=== PATIENT | female | born 1995 | race Caucasian/White ===

== ENCOUNTER 2016-06-20 20:55 | Emergency (ER) | payer OTHER ==
[2016-06-20 21:03] VITALS: O2SAT 97
--- NOTE | 2016-06-20 22:17 | EDPHY ---
H & P Stated Complaint: Bilateral knee pain-14 hour flight yesterday. Time Seen by Provider: 06/20/16 21:58 HPI/ROS: HPI The patient presents with bilateral knee pain which has been present for the last 1 day. She arrived on a flight last night from [facility] to [place], it was 14 hours and she was sleeping for most of it. She said that after the flight both of her legs felt sore, mostly in the knees, they were achy in nature and moderate in severity, her pain has been intermittent. She has no prior history of similar. She is on OCPs. She has no personal or family history of DVT or PE that she is aware of. She is here from the urging of her mother. REVIEW OF SYSTEMS Constitutional: No fever, no chills. Eyes: No discharge. ENT: No sore throat. Cardiovascular: No chest pain, no palpitations. Respiratory: No cough, no shortness of breath. Gastrointestinal: No abdominal pain, no vomiting. Genitourinary: No hematuria. Musculoskeletal: No back pain. Skin: No rashes. Neurological: No headache. PMHx: History of tib-fib fracture requiring ORIF Soc Hx: College student PHYSICAL General Appearance: Alert, no distress Eyes: Pupils equal and round no pallor or injection ENT, Mouth: Mucous membranes moist Respiratory: There are no retractions, lungs are clear to auscultation Cardiovascular: Regular rate and rhythm Gastrointestinal: Abdomen is soft and non-tender, no masses, bowel sounds normal Neurological: A&O, moves all extremities Skin: Warm and dry, no rashes Musculoskeletal: Neck is supple non tender Extremities: symmetrical, full range of motion Psychiatric: Patient is oriented X 3, there is no agitation Source: Patient Exam Limitations: No limitations - Personal History LMP (Females 10-55): Now Current Tetanus/Diphtheria Vaccine: Unsure Current Tetanus Diphtheria and Acellular Pertussis (TDAP): Unsure - Medical/Surgical History Hx Asthma: No Hx Chronic Respiratory Disease: No Hx Diabetes: No Hx Cardiac Disease: No Hx Renal Disease: No Hx Cirrhosis: No Hx Alcoholism: No Hx HIV/AIDS: No Hx Splenectomy or Spleen Trauma: No Other PMH: ORIF R leg. - Social History Smoking Status: Never smoked Constitutional: Initial Vital Signs Temperature (C) 36.5 C 06/20/16 21:00 Heart Rate 77 06/20/16 21:00 Respiratory Rate 16 06/20/16 21:00 Blood Pressure 147/90 H 06/20/16 21:00 O2 Sat (%) 97 06/20/16 21:00 O2 Delivery Mode Room Air Allergies/Adverse Reactions: No Known Allergies Allergy (Unverified 06/20/16 21:03) Home Medications: Medication Instructions Recorded Rosalina 21 1-20 Tablet 06/20/16 Medical Decision Making Procedures: Bedside bilateral DVT Ultrasound- performed and interpreted by me. Indication: Bilateral leg pain Findings: Bilaterally, the common femoral vein was easily compressible with no clot seen with normal blood flow, popliteal vein was easily compressible with no clot seen with normal blood flow Impression: No sonographic sign of bilateral DVT on 2 point testing Differential Diagnosis: This is a 20-year-old healthy female who is on OCPs who returns from a 14 hour flight today with bilateral knee pain. She is concerned about DVT. Differential diagnosis includes DVT, patellofemoral syndrome, muscle tightness. In the emergency room, DVT study was performed on both legs and was unremarkable. I feel her symptoms are likely related to prolonged seeding with limited stretching during her flight because she was sleeping. I have discussed this with her and I recommend ice and ibuprofen as needed for her pain. Departure - Departure Disposition: Home, Routine, Self-Care Clinical Impression: Leg pain, bilateral Condition: Good Instructions: Deep Venous Thrombosis (ED) Additional Instructions: There was NOT a sign of a blood clot in your leg on your ultrasound today. You should make sure to stretch her legs when you are in an airplane. Referrals: [facility] [Outside] - As per Instructions
[2016-06-20 22:31] VITALS: BP 145/97; PULSE 68; RESP 18; TEMP 98.6
== END 2016-06-20 22:29 | disposition home or self-care (01) ==
DX: M79.605 Pain in left leg (principal); M79.604 Pain in right leg